=== PATIENT | male | born 1990 ===

== ENCOUNTER 2020-06-30 01:13 | Emergency (ER) | payer OTHER ==
[2020-06-30] MEDS ORDERED: Lorazepam 2 MG/ML VIAL ONE (03:05)
== END 2020-06-30 04:18 | disposition home or self-care (01) ==
LOC: ERS 01:13
DX: F15.10 Other stimulant abuse, uncomplicated (principal); F17.210 Nicotine dependence, cigarettes, uncomplicated
CPT/HCPCS: 96374; J2060